=== PATIENT | female | born 1925 | race Caucasian/White ===

== ENCOUNTER 2017-06-06 18:47 | Observation (INO) | payer MEDICARE ==
[2017-06-06] MEDS ORDERED: SUBLIMAZE 100 MCG/2 ML IM ONE (19:22)
[2017-06-06] MEDS ORDERED: SUBLIMAZE 100 MCG/2 ML ONE (19:32)
--- NOTE | 2017-06-06 20:21 | ERPHSYRPT ---
- History of Present Illness Source: patient, family, EMS Exam Limitations: clinical condition Patient Subjective Stated Complaint: pt fell yesterday morning in her bedroom and landed on her left hip. pt c/o left hip and left flank pain. Triage Nursing Assessment: pt alert x3. respirations even and unlabored. skin is normal for race, warm and dry. Physician History: Patient apparently fell at home today before injuring her left hip and pelvic area but able to ambulate at home. Brought to ER by EMS with 2 sisters who are unable to care for her because of their elderly medical status. Patient unsure whether she has eaten or drinking very much recently. Walking is painful for her. Denies other injuries. The bugs and roaches were noted by EMS while they were at the residence. Patient does not appear to have any of these on her body at this time. Method of Injury: fell Occurred: yesterday Quality: aching Severity of Pain-Max: none Severity of Pain-Current: none (NO PAIN AT REST ONLY WITH MOVEMENT AT WHICH TIME PAIN INCREASES TO 5-6) Lower Extremities Pain: hip: left, other: left (pelvis) Modifying Factors: Improves With: immobilization, movement, pain medication Associated Symptoms: other (Painful weightbearing) Allergies/Adverse Reactions: No Known Drug Allergies Allergy (Unverified 04/27/15 10:12) Home Medications: Aspirin 81 mg PO DAILY 04/27/15 [History] Hx Tetanus, Diphtheria Vaccination/Date Given: No Hx Influenza Vaccination/Date Given: No Hx Pneumococcal Vaccination/Date Given: No Immunizations Up to Date: Yes - Review of Systems Constitutional: No Symptoms Eyes: No Symptoms Ears, Nose, & Throat: No Symptoms Respiratory: No Cough, No Dyspnea Cardiac: No Chest Pain, No Edema, No Syncope Abdominal/Gastrointestinal: No Abdominal Pain, No Nausea, No Vomiting, No Diarrhea Genitourinary Symptoms: No Dysuria Musculoskeletal: Fall ( NOTED IN HISTORY OF PRESENT ILLNESS) Skin: No Symptoms Neurological: No Symptoms Psychological: No Symptoms Endocrine: No Symptoms - Past Medical History Pertinent Past Medical History: Yes Neurological History: TIA ENT History: Cataracts, Other Cardiac History: High Cholesterol, Hypertension Respiratory History: Pneumonia Endocrine Medical History: No Pertinent History Musculoskeletal History: No Pertinent History GI Medical History: No Pertinent History History: No Pertinent History Psycho-Social History: Anxiety, Depression Female Reproductive Disorders: No Pertinent History - Past Surgical History Past Surgical History: Yes Cardiac: Cardiac Catheterization Respiratory: No Pertinent History Gastrointestinal: No Pertinent History Genitourinary: No Pertinent History Musculoskeletal: Orthopedic Surgery Female Surgical History: Hysterectomy - Social History Smoking Status: Never smoker Exposure to second hand smoke: No Drug Use: none Patient Lives Alone: No - Female History Hx Now: No - Nursing Vital Signs Nursing Vital Signs: Initial Vital Signs Temperature 98.8 F 06/06/17 18:47 Pulse Rate 70 06/06/17 18:47 Respiratory Rate 20 06/06/17 18:47 Blood Pressure 189/99 06/06/17 18:47 O2 Sat by Pulse Oximetry 97 06/06/17 18:47 Pain Scale Pain Intensity 3 - Physical Exam General Appearance: no apparent distress Eyes, Ears, Nose, Throat Exam: moist mucous membranes Neck Exam: non-tender, supple Cardiovascular/Respiratory Exam: chest non-tender, normal breath sounds, regular rate/rhythm, no respiratory distress Gastrointestinal/Abdominal Exam: non-tender, guarding Back Exam: other (SOME MILD PALPABLE TENDERNESS POSTE LEFT ILIAC CREST AREA) Hips Exam: left: bone tenderness, other (tENDERNESS LEFT ACETABULAR AND PUBIC AREA ALSO.) Legs Exam: bilateral leg: non-tender, normal inspection, normal range of motion Ankle Exam: bilateral ankle: non-tender, normal inspection, normal range of motion Foot Exam: bilateral foot: non-tender, normal inspection, normal range of motion DTR - Lower Extremities Exam: knee (R): 1+, knee (L): 1+, ankle (R): 1+, ankle ( L): 1+ Neuro/Tendon Exam: normal sensation, normal motor functions, normal tendon functions Mental Status Exam: alert, oriented x 3, cooperative Skin Exam: normal color SpO2 Interpretation: normal SpO2: 97 Oxygen Delivery: Room Air - CT Exams Pelvis CT Interpretation: Discussed w/radiologist (Degenerative changes/osteopenia only no fracture or dislocations.) Ordered Tests: Active Orders 24 hr Category Date Time Status Up With Assistance ROUTINE Activity 06/06/17 23:30 Active Admission/Status Order ROUTINE Care 06/06/17 23:30 Active Code Status Order ROUTINE Care 06/06/17 23:30 Active IV Care Q6H Care 06/06/17 23:30 Completed Isolation, Initiate & Maintain Q12H Care 06/06/17 23:30 Active Miscellaneous Nursing Order ROUTINE Care 06/06/17 23:30 Active Cardiac Diet Diet 06/06/17 Breakfast Active PELVIS WITHOUT CONTRAST [CT] Stat Exams 06/06/17 19:19 Taken CBC W DIFF Urgent Lab 06/06/17 23:56 Completed Transfer Order Routine Transfer 06/06/17 21:48 Completed Medication Summary Generic Name Dose Route Start Last Admin Trade Name Freq PRN Reason Stop Dose Admin Hydrocodone Bitart/Acetaminophen 1 tab 06/06/17 23:30 06/07/17 00:01 [place] 5/325 Mg PO 06/11/17 23:29 1 tab Q12H PRN PRN Administration PAIN Discontinued Medications Generic Name Dose Route Start Last Admin Trade Name Freq PRN Reason Stop Dose Admin Fentanyl Citrate 50 mcg 06/06/17 19:22 06/06/17 19:34 Sublimaze 100 Mcg/2 Ml IM 06/06/17 19:23 50 mcg STAT ONE Administration Fentanyl Citrate Confirm 06/06/17 19:32 Sublimaze 100 Mcg/2 Ml Administered 06/06/17 19:33 Dose 100 mcg .ROUTE .STK-MED ONE - Progress Progress: improved, pain not gone completely, re-examined Progress Note: 06/06/17 21:28Patient unfortunately has no help at home and is difficult ambulation as well as her home is potentially contaminated with bedbugs roaches and and significant disrepair. The sisters are unable to help her and therefore Dr. Luo was contacted patient will be admitted for observation overnight for pain control dietary intake and social service consultation. This is in agreement to patient. Discussed with : Sandra Will see patient in: hospital (observation) Counseled pt/family regarding: rad results - Departure Time of Disposition: 21:29 Departure Disposition: Observation Clinical Impression: Contusion of lower back and pelvis, initial encounter, Infestation by insect Contusion of left hip Qualifiers: Encounter type: initial encounter Qualified Code(s): S70.02XA - Contusion of left hip, initial encounter Condition: Stable Critical Care Time: No
[2017-06-06] MEDS ORDERED: NORCO 5/325 MG PO PRN (23:30)
[2017-06-07 00:22] LABS: ANION GAP 18.5 MEQ/L (5-15); Carbon Dioxide 24.5 mEq/L (21-32); Potassium 4.2 mEq/L (3.5-5.1)
[2017-06-07 03:11] LABS: Mean Cell Volume 97.9 fl (78-100); Mean Corpuscular Hemoglobin 30.4 pg (26-32); Mean Platelet Volume 10.8 fl (6-9.5); Platelet Count 278 K/mm3 (150-450); Red Blood Count 4.83 M/mm3 (4.1-5.4); Red Cell Distribution Width 15.3 % (11.5-14.0); White Blood Count 10.2 K/mm3 (4.0-10.5)
[2017-06-07 03:12] LABS: BASOPHIL % 0.3 % (0.0-0.4); Eosinophil % 0.4 % (0.00-5.0); Granulocytes % 66.3 % (36.0-66.0)
[2017-06-07 08:43] VITALS: O2SAT 95
--- NOTE | 2017-06-07 09:03 | XRAY ---
Indication: Left sided pain following fall. Multiple contiguous axial images obtained through the pelvis only with special attention to the osseous structures. Sagittal and coronal reformatted images obtained. Comparison: None Osseous structures demineralized consistent with patient's age. There are mild/moderate degenerative changes of the visualized lower lumbar spine as well as tiny spurring of both acetabulum and trochanters. No acute fracture, dislocation, or suspicious bony lesions. Visualized noncontrasted soft tissues demonstrates scattered sigmoid diverticulosis and moderate aortoiliac calcifications. Impression: 1. Negative acute fracture/dislocation. 2. Incidental osteopenia, degenerative changes, and sigmoid diverticulosis. CT DI 22.50
--- NOTE | 2017-06-07 12:37 | PCM.SSS ---
History of Present Illness - Chief Complaint Chief Complaint: FALL WITH CONTUSION LEFT HIP POSTERIOR PELVIS History of Present Illness: is a 89 year old female.Patient apparently fell at home today before injuring her left hip and pelvic area but able to ambulate at home. Brought to ER by EMS with 2 sisters who are unable to care for her because of their elderly medical status. Patient unsure whether she has eaten or drinking very much recently. Walking is painful for her. Denies other injuries. The bugs and roaches were noted by EMS while they were at the residence. Patient does not appear to have any of these on her body at this time. Method of Injury: fell Occurred: yesterday Quality: aching Severity of Pain-Max: none Severity of Pain-Current: none (NO PAIN AT REST ONLY WITH MOVEMENT AT WHICH TIME PAIN INCREASES TO 5-6) Lower Extremities Pain: hip: left, other: left (pelvis) Modifying Factors: Improves With: immobilization, movement, pain medication Associated Symptoms: other (Painful weightbearing) - Review of Systems Constitutional: No Fever, No Chills Eyes: No Symptoms Ears, Nose, & Throat: No Symptoms Respiratory: No Cough, No Short Of Breath Cardiac: No Chest Pain, No Edema, No Syncope Abdominal/Gastrointestinal: No Abdominal Pain, No Nausea, No Vomiting, No Diarrhea Genitourinary Symptoms: No Dysuria Musculoskeletal: Arthralgias, Back Pain, Fall, Joint Pain, Myalgias, No Neck Pain, No Joint Swelling Skin: No Rash Neurological: No Dizziness, No Focal Weakness, No Sensory Changes Psychological: No Symptoms Endocrine: No Symptoms Hematologic/Lymphatic: No Symptoms Immunological/Allergic: No Symptoms Medications & Allergies Home Medications: Home Medication List Aspirin 81 mg PO DAILY 04/27/15 [History Confirmed 06/06/17] Allergies/Adverse Reactions: Allergies Allergy/AdvReac Type Severity Reaction Status Date / Time No Known Drug Allergies Allergy Unverified 04/27/15 10:12 - Past Medical History Past Medical History: Yes Neurological History: TIA ENT History: Cataracts, Other Cardiac History: High Cholesterol, Hypertension Respiratory History: Pneumonia Endocrine Medical History: No Pertinent History Musculoskelatal History: No Pertinent History GI Medical History: No Pertinent History History: No Pertinent History Pyscho-Social History: Anxiety, Depression Reproductive Disorders: No Pertinent History - Female History Are you now?: No - Past Surgical History Past Surgical History: Yes Cardiac History: Cardiac Catheterization Respiratory Surgery: No Pertinent History GI Surgical History: No Pertinent History Genitourinary Surgical Hx: No Pertinent History Musculskeletal Surgical Hx: Orthopedic Surgery Female Surgical History: Hysterectomy - Social History Smoking Status: Never smoker Exposure to second hand smoke: No Alcohol: None Drug Use: none - Physical Exam Vital Signs: Vital Signs - 24 hr Temp Pulse Resp BP Pulse Ox 06/07/17 08:00 98.1 F 86 18 190/90 95 06/07/17 04:10 98.3 F 93 H 18 175/80 97 06/07/17 03:56 97 06/07/17 00:00 97.3 F 89 186/89 97 06/06/17 19:37 97.3 F 89 18 186/89 93 L 06/06/17 18:47 98.8 F 70 20 189/99 97 General Appearance: no apparent distress, alert Neurologic Exam: alert, oriented x 3, cooperative, normal mood/affect, nml cerebellar function, nml station & gait, sensation nml, No motor deficits Eye Exam: PERRL/EOMI, eyes nml inspection Ears, Nose, Throat Exam: normal ENT inspection, TMs normal, pharynx normal, moist mucous membranes Neck Exam: normal inspection, non-tender, supple, full range of motion Respiratory Exam: normal breath sounds, lungs clear, No respiratory distress Cardiovascular Exam: regular rate/rhythm, normal heart sounds, normal peripheral pulses Gastrointestinal/Abdomen Exam: soft, normal bowel sounds, No tenderness, No mass Back Exam: normal inspection, normal range of motion, No CVA tenderness, No vertebral tenderness Extremity Exam: normal inspection, normal range of motion, pelvis stable Skin Exam: normal color, warm, dry, No rash Lymphatic Exam: No adenopathy Results - Labs Lab/Micro Results: Lab Results-Last 24 Hours 06/06/17 06/06/17 Range/Units 23:56 23:56 WBC 10.2 (4.0-10.5) K/mm3 RBC 4.83 (4.1-5.4) M/mm3 Hgb 14.7 (12.0-16.0) gm/dl Hct 47.3 H (35-47) % MCV 97.9 (78-100) fl MCH 30.4 (26-32) pg MCHC 31.1 L (32-36) g/dl RDW 15.3 H (11.5-14.0) % Plt Count 278 (150-450) K/mm3 MPV 10.8 H (6-9.5) fl Gran % 66.3 H (36.0-66.0) % Lymphocytes % 24.0 (24.0-44.0) % Monocytes % 9.0 (0.0-12.0) % Eosinophils % 0.4 (0.00-5.0) % Basophils % 0.3 (0.0-0.4) % Basophils # 0.03 (0-0.4) Sodium 140 (136-145) mEq/L Potassium 4.2 (3.5-5.1) mEq/L Chloride 101 (98-107) mEq/L Carbon Dioxide 24.5 (21-32) mEq/L Anion Gap 18.5 H (5-15) MEQ/L BUN 16 (9-20) mg/dL Creatinine 1.34 H (0.55-1.30) mg/dl Estimated GFR 40 ML/MIN Glucose 98 (70-110) MG/DL Calcium 9.6 (8.5-10.1) mg/dL Prealbumin 24.4 (18.0-35.7) mg/dL Assessment/Plan (1) Contusion of left hip Current Visit: Yes Status: Acute Qualifiers: Encounter type: subsequent encounter Qualified Code(s): S70.02XD - Contusion of left hip, subsequent encounter Assessment & Plan: Chief Complaint Diagnosis FALL WITH CONTUSION LEFT HIP POSTERIOR PELVIS Allergies Allergy/AdvReac Type Severity Reaction Status Date / Time No Known Drug Allergies Allergy Unverified 04/27/15 10:12 Vital Signs (Last 24 hours) Temp Pulse Resp BP Pulse Ox 06/07/17 08:00 98.1 F 86 18 190/90 95 06/07/17 04:10 98.3 F 93 H 18 175/80 97 06/07/17 03:56 97 06/07/17 00:00 97.3 F 89 186/89 97 06/06/17 19:37 97.3 F 89 18 186/89 93 L 06/06/17 18:47 98.8 F 70 20 189/99 97 Current Medications Generic Name Dose Route Start Last Admin Trade Name Freq PRN Reason Stop Dose Admin Hydrocodone Bitart/Acetaminophen 1 tab 06/06/17 23:30 06/07/17 00:01 [place] 5/325 Mg PO 06/11/17 23:29 1 tab Q12H PRN PRN Administration PAIN Discontinued Medications Generic Name Dose Route Start Last Admin Trade Name Ana Luisa PRN Reason Stop Dose Admin Fentanyl Citrate 50 mcg 06/06/17 19:22 06/06/17 19:34 Sublimaze 100 Mcg/2 Ml IM 06/06/17 19:23 50 mcg STAT ONE Administration Fentanyl Citrate Confirm 06/06/17 19:32 Sublimaze 100 Mcg/2 Ml Administered 06/06/17 19:33 Dose 100 mcg .ROUTE .STK-MED ONE Intake & Output (Last 24 hours) 06/05/17 06/06/17 06/07/17 06/08/17 11:59 11:59 11:59 11:59 Intake Total 560 Output Total 200 Balance 360 Weight 64.954 kg Laboratory Results (Last 24 hours) 06/06/17 06/06/17 23:56 23:56 WBC 10.2 RBC 4.83 Hgb 14.7 Hct 47.3 H MCV 97.9 MCH 30.4 MCHC 31.1 L RDW 15.3 H Plt Count 278 MPV 10.8 H Gran % 66.3 H Lymphocytes % 24.0 Monocytes % 9.0 Eosinophils % 0.4 Basophils % 0.3 Basophils # 0.03 Sodium 140 Potassium 4.2 Chloride 101 Carbon Dioxide 24.5 Anion Gap 18.5 H BUN 16 Creatinine 1.34 H Estimated GFR 40 Glucose 98 Calcium 9.6 Prealbumin 24.4 Orders (Last 24 hours) Category Date Time Status Up With Assistance ROUTINE Activity 06/06/17 23:30 Active Admission/Status Order ROUTINE Care 06/06/17 23:30 Active Code Status Order ROUTINE Care 06/06/17 23:30 Active IV Care Q6H Care 06/06/17 23:30 Completed Isolation, Initiate & Maintain Q12H Care 06/06/17 23:30 Active Miscellaneous Nursing Order ROUTINE Care 06/06/17 23:30 Active PELVIS WITHOUT CONTRAST [CT] Stat Exams 06/06/17 19:19 Completed BMP Routine Lab 06/06/17 23:56 Completed CBC W DIFF Urgent Lab 06/06/17 23:56 Completed PREALBUMIN Routine Lab 06/06/17 23:56 Completed Fentanyl Citrate 100 Mcg/2 ml* [Sublimaze 100 Mcg/2 ml* Med 06/06/17 19:32 Discontinued ] 100 mcg .ROUTE .STK-MED ONE Fentanyl Citrate 100 Mcg/2 ml* [Sublimaze 100 Mcg/2 ml* Med 06/06/17 19:22 Discontinued ] 50 mcg IM STAT ONE Hydrocodone/APAP 5/325 [[place] 5/325 mg] Med 06/06/17 23:30 Active 1 tab PO Q12H PRN PRN Transfer Order Routine Transfer 06/06/17 21:48 Completed Code(s): S70.02XA - CONTUSION OF LEFT HIP, INITIAL ENCOUNTER (2) Fall at home Current Visit: Yes Status: Resolved Code(s): W19.XXXA - UNSPECIFIED FALL, INITIAL ENCOUNTER; Y92.099 - UNSP PLACE IN OTH NON-INSTITUTIONAL RESIDENCE PLACE (3) Infestation by insect Current Visit: Yes Status: Acute Code(s): B88.8 - OTHER SPECIFIED INFESTATIONS Hospital Summary - Hospital Course Hospital Course: Chief Complaint Diagnosis FALL WITH CONTUSION LEFT HIP POSTERIOR PELVIS Allergies Allergy/AdvReac Type Severity Reaction Status Date / Time No Known Drug Allergies Allergy Unverified 04/27/15 10:12 Vital Signs (Last 24 hours) Temp Pulse Resp BP Pulse Ox 06/07/17 08:00 98.1 F 86 18 190/90 95 06/07/17 04:10 98.3 F 93 H 18 175/80 97 06/07/17 03:56 97 06/07/17 00:00 97.3 F 89 186/89 97 06/06/17 19:37 97.3 F 89 18 186/89 93 L 06/06/17 18:47 98.8 F 70 20 189/99 97 Current Medications Generic Name Dose Route Start Last Admin Trade Name Freq PRN Reason Stop Dose Admin Hydrocodone Bitart/Acetaminophen 1 tab 06/06/17 23:30 06/07/17 00:01 [place] 5/325 Mg PO 06/11/17 23:29 1 tab Q12H PRN PRN Administration PAIN Discontinued Medications Generic Name Dose Route Start Last Admin Trade Name Freq PRN Reason Stop Dose Admin Fentanyl Citrate 50 mcg 06/06/17 19:22 06/06/17 19:34 Sublimaze 100 Mcg/2 Ml IM 06/06/17 19:23 50 mcg STAT ONE Administration Fentanyl Citrate Confirm 06/06/17 19:32 Sublimaze 100 Mcg/2 Ml Administered 06/06/17 19:33 Dose 100 mcg .ROUTE .STK-MED ONE Intake & Output (Last 24 hours) 06/05/17 06/06/17 06/07/17 06/08/17 11:59 11:59 11:59 11:59 Intake Total 560 Output Total 200 Balance 360 Weight 64.954 kg Laboratory Results (Last 24 hours) 06/06/17 06/06/17 23:56 23:56 WBC 10.2 RBC 4.83 Hgb 14.7 Hct 47.3 H MCV 97.9 MCH 30.4 MCHC 31.1 L RDW 15.3 H Plt Count 278 MPV 10.8 H Gran % 66.3 H Lymphocytes % 24.0 Monocytes % 9.0 Eosinophils % 0.4 Basophils % 0.3 Basophils # 0.03 Sodium 140 Potassium 4.2 Chloride 101 Carbon Dioxide 24.5 Anion Gap 18.5 H BUN 16 Creatinine 1.34 H Estimated GFR 40 Glucose 98 Calcium 9.6 Prealbumin 24.4 Orders (Last 24 hours) Category Date Time Status Up With Assistance ROUTINE Activity 06/06/17 23:30 Active Admission/Status Order ROUTINE Care 06/06/17 23:30 Active Code Status Order ROUTINE Care 06/06/17 23:30 Active IV Care Q6H Care 06/06/17 23:30 Completed Isolation, Initiate & Maintain Q12H Care 06/06/17 23:30 Active Miscellaneous Nursing Order ROUTINE Care 06/06/17 23:30 Active PELVIS WITHOUT CONTRAST [CT] Stat Exams 06/06/17 19:19 Completed BMP Routine Lab 06/06/17 23:56 Completed CBC W DIFF Urgent Lab 06/06/17 23:56 Completed PREALBUMIN Routine Lab 06/06/17 23:56 Completed Fentanyl Citrate 100 Mcg/2 ml* [Sublimaze 100 Mcg/2 ml* Med 06/06/17 19:32 Discontinued ] 100 mcg .ROUTE .STK-MED ONE Fentanyl Citrate 100 Mcg/2 ml* [Sublimaze 100 Mcg/2 ml* Med 06/06/17 19:22 Discontinued ] 50 mcg IM STAT ONE Hydrocodone/APAP 5/325 [[place] 5/325 mg] Med 06/06/17 23:30 Active 1 tab PO Q12H PRN PRN Transfer Order Routine Transfer 06/06/17 21:48 Completed - Vitals & Intake/Output Vital Signs: Vital Signs Temperature 98.1 F 06/07/17 08:00 Pulse Rate 86 06/07/17 08:00 Respiratory Rate 18 06/07/17 08:00 Blood Pressure 190/90 06/07/17 08:00 O2 Sat by Pulse Oximetry 95 06/07/17 08:00 Intake & Output: Intake & Output 06/05/17 06/06/17 06/07/17 06/08/17 11:59 11:59 11:59 11:59 Intake Total 560 Output Total 200 Balance 360 - Lab Result Diagrams: 06/06/17 23:56 06/06/17 23:56 Lab Results-Last 24 Hrs: Lab Results-Last 24 Hours 06/06/17 06/06/17 Range/Units 23:56 23:56 WBC 10.2 (4.0-10.5) K/mm3 RBC 4.83 (4.1-5.4) M/mm3 Hgb 14.7 (12.0-16.0) gm/dl Hct 47.3 H (35-47) % MCV 97.9 (78-100) fl MCH 30.4 (26-32) pg MCHC 31.1 L (32-36) g/dl RDW 15.3 H (11.5-14.0) % Plt Count 278 (150-450) K/mm3 MPV 10.8 H (6-9.5) fl Gran % 66.3 H (36.0-66.0) % Lymphocytes % 24.0 (24.0-44.0) % Monocytes % 9.0 (0.0-12.0) % Eosinophils % 0.4 (0.00-5.0) % Basophils % 0.3 (0.0-0.4) % Basophils # 0.03 (0-0.4) Sodium 140 (136-145) mEq/L Potassium 4.2 (3.5-5.1) mEq/L Chloride 101 (98-107) mEq/L Carbon Dioxide 24.5 (21-32) mEq/L Anion Gap 18.5 H (5-15) MEQ/L BUN 16 (9-20) mg/dL Creatinine 1.34 H (0.55-1.30) mg/dl Estimated GFR 40 ML/MIN Glucose 98 (70-110) MG/DL Calcium 9.6 (8.5-10.1) mg/dL Prealbumin 24.4 (18.0-35.7) mg/dL - Discharge Discharge Date: 06/07/17 Disposition: Home, Self-Care Condition: Stable Prescriptions: Continue Aspirin 81 mg PO DAILY Follow up with: LA NENA GONSALVES MD [Primary Care Provider] -
[2017-06-07 13:43] VITALS: BP 186/81; PULSE 100
== END 2017-06-07 15:55 | disposition home health service (06) ==
LOC: ED 18:47 → MED SURG 22:54
PROVIDERS: ADMIT General Practice; ATTEND General Practice
DX: S70.02XA Contusion of left hip, initial encounter (principal); W19.XXXA Unspecified fall, initial encounter; Y92.099 Unspecified place in other non-institutional residence as the place of occurrence of the external cause; B88.8 Other specified infestations; I10 Essential (primary) hypertension
CPT/HCPCS: 36415; 72192; 80048; 84134; 85025; 99285; G0378; J3010; A9270-GY